=== PATIENT | male | born 1945 | race Hispanic/Latino ===

== ENCOUNTER → 2016-05-26 | Outpatient (CLI) | payer OTHER ==
[~2016-05-26] MED LIST: ALDACTONE25 MG PO; AMOX-358 PO; ASPI-875 PO; CALC-80 PO; CARV12.53 PO; CARV6.252 PO; CHOL10007 PO; CHOL200018 PO; CLON0.1T14 PO; FERR325C PO; FOLI1TAB6 PO; HYDR200T46 PO; HYDR25TA4 PO; ISOS30TA74 PO; LEVO112T55 PO; LISI20TA PO; LISI40TA PO; LVT.1T PO; MYCO500T PO; OMEG-109 PO; OMEG-82 PO; OMEP-10 PO; SIMV40TA4 PO; SPRN25T PO; TELM80TA3 PO; UBID50CA PO
[2016-05-26 11:52] LABS: BASOPHILS % (AUTO) 0 % (0-10); EOSINOPHILS % (AUTO) 0 % (0-10); LYMPHOCYTES # (AUTO) 1.6 X 10^3 (1.0-4.0); LYMPHOCYTES % (AUTO) 13 % (12-44); MEAN CORPUSCULAR HEMOGLOBIN 29 PG (25-34); MEAN CORPUSCULAR HGB CONC 33 G/DL (32-36); MEAN CORPUSCULAR VOLUME 87 FL (80-99); MONOCYTES # (AUTO) 1.8 X 10^3 (0.0-1.0); MONOCYTES % (AUTO) 14 % (0-12); NEUTROPHILS # (AUTO) 8.9 X 10^3 (1.8-7.8); NEUTROPHILS % (AUTO) 72 % (42-75); PLATELET COUNT 169 10^3/uL (130-400); RED BLOOD COUNT 4.74 10^6/uL (4.35-5.85); RED CELL DISTRIBUTION WIDTH 13.9 % (10.0-14.5); WHITE BLOOD COUNT 12.4 10^3/uL (4.3-11.0)
[2016-05-26 12:11] LABS: ERYTHROCYTE SEDIMENTATION RATE 33 MM/HR (0-30)
[2016-05-26 12:13] LABS: ALBUMIN 4.2 G/DL (3.2-4.5); BILIRUBIN,TOTAL 0.9 MG/DL (0.1-1.0); CALCIUM 9.3 MG/DL (8.5-10.1); CREATININE SERUM 1.72 MG/DL (0.60-1.30); TOTAL PROTEIN 8.4 G/DL (6.4-8.2); hs C REACTIVE PROTEIN 8.25 MG/DL (0.00-0.50)
== END ==
LOC: LAB 11:23
PROVIDERS: ATTEND Nurse Practitioner Family
DX: M79.672 Pain in left foot (principal)
CPT/HCPCS: 36415; 80053; 85025; 85652; 86141

== ENCOUNTER → 2016-11-02 | Outpatient (CLI) | payer OTHER ==
[2016-11-02 08:49] LABS: ALBUMIN 4.1 GM/DL (3.2-4.5); BILIRUBIN,TOTAL 0.4 MG/DL (0.1-1.0); CALCIUM 8.7 MG/DL (8.5-10.1); CREATININE SERUM 1.61 MG/DL (0.60-1.30); POTASSIUM 3.9 MMOL/L (3.6-5.0); TOTAL PROTEIN 8.1 GM/DL (6.4-8.2)
== END ==
LOC: LAB 08:08
PROVIDERS: ATTEND Physician Assistant
DX: I10 Essential (primary) hypertension (principal); I73.9 Peripheral vascular disease, unspecified; E78.2 Mixed hyperlipidemia
CPT/HCPCS: 36415; 80053; 80061

== ENCOUNTER → 2017-02-27 | Outpatient (CLI) | payer SELFPAY ==
[2017-02-27 14:11] LABS: BILIRUBIN,TOTAL 0.4 MG/DL (0.1-1.0); CALCIUM 8.8 MG/DL (8.5-10.1); CREATININE SERUM 1.59 MG/DL (0.60-1.30); POTASSIUM 3.5 MMOL/L (3.6-5.0); TOTAL PROTEIN 8.1 GM/DL (6.4-8.2)
== END ==
LOC: LAB 13:35
PROVIDERS: ATTEND Internal Medicine Cardiovascular Disease
DX: N28.9 Disorder of kidney and ureter, unspecified (principal); I10 Essential (primary) hypertension
CPT/HCPCS: 36415; 80053

== ENCOUNTER → 2017-03-11 | Outpatient (CLI) | payer SELFPAY | LOC: CARD 12:50 | PROVIDERS: ATTEND Internal Medicine Cardiovascular Disease | DX: I25.10 Atherosclerotic heart disease of native coronary artery without angina pectoris (principal); I10 Essential (primary) hypertension; R07.89 Other chest pain; R06.09 Other forms of dyspnea | CPT/HCPCS: 93306 ==

== ENCOUNTER → 2017-06-03 | Outpatient (CLI) | payer OTHER | LOC: LAB 15:28 | PROVIDERS: ATTEND Physician Assistant | DX: I25.10 Atherosclerotic heart disease of native coronary artery without angina pectoris (principal); R07.89 Other chest pain; R06.09 Other forms of dyspnea; I10 Essential (primary) hypertension | CPT/HCPCS: 36415; 84443 ==

== ENCOUNTER → 2017-06-03 | Outpatient (CLI) | payer OTHER ==
[2017-06-03 16:06] LABS: BASOPHILS # (AUTO) 0.1 10^3/uL (0.0-0.1); BASOPHILS % (AUTO) 2 % (0-10); EOSINOPHILS # (AUTO) 0.2 10^3/uL (0.0-0.3); EOSINOPHILS % (AUTO) 3 % (0-10); HEMATOCRIT 40 % (40-54); HEMOGLOBIN 13.4 G/DL (13.3-17.7); LYMPHOCYTES # (AUTO) 1.9 X 10^3 (1.0-4.0); LYMPHOCYTES % (AUTO) 29 % (12-44); MEAN CORPUSCULAR HEMOGLOBIN 29 PG (25-34); MEAN CORPUSCULAR HGB CONC 33 G/DL (32-36); MEAN CORPUSCULAR VOLUME 87 FL (80-99); MEAN PLATELET VOLUME 10.3 FL (7.4-10.4); MONOCYTES # (AUTO) 0.8 X 10^3 (0.0-1.0); MONOCYTES % (AUTO) 12 % (0-12); NEUTROPHILS # (AUTO) 3.6 X 10^3 (1.8-7.8); NEUTROPHILS % (AUTO) 55 % (42-75); PLATELET COUNT 196 10^3/uL (130-400); RED BLOOD COUNT 4.62 10^6/uL (4.35-5.85); RED CELL DISTRIBUTION WIDTH 14.1 % (10.0-14.5); WHITE BLOOD COUNT 6.5 10^3/uL (4.3-11.0)
[2017-06-03 16:10] LABS: BILIRUBIN,URINE NEGATIVE (NEGATIVE); CLARITY,URINE CLEAR; COLOR,URINE YELLOW; GLUCOSE, URINE (UA) NEGATIVE (NEGATIVE); KETONES,URINE NEGATIVE (NEGATIVE); LEUKOCYTE ESTERASE ,URINE NEGATIVE (NEGATIVE); NITRITE,URINE NEGATIVE (NEGATIVE); PH,URINE 6 (5-9); PROTEIN,URINE 1+ (NEGATIVE); UROBILINOGEN,URINE NORMAL (NORMAL)
[2017-06-03 16:31] LABS: BACTERIA,URINE NEGATIVE /HPF
[2017-06-03 16:34] LABS: ERYTHROCYTE SEDIMENTATION RATE 11 MM/HR (0-30)
[2017-06-03 16:41] LABS: ALBUMIN 4.3 GM/DL (3.2-4.5); CALCIUM 8.9 MG/DL (8.5-10.1); CREATININE SERUM 1.61 MG/DL (0.60-1.30); PHOSPHORUS 2.9 MG/DL (2.3-4.7); POTASSIUM 3.7 MMOL/L (3.6-5.0); URIC ACID 9.7 MG/DL (2.6-7.2)
--- NOTE | 2017-06-03 17:17 | Diagnostic Imaging Report ---
PATIENT HISTORY: LUPUS NEPHRITIS. History of cysts. TECHNIQUE: Grayscale and Doppler ultrasound was performed of the kidneys bilaterally, as well as the bladder. COMPARISON: 06/03/2013 FINDINGS: Right: The right kidney measures 9.3 cm in length. Multiple hypoechoic cysts are seen in the kidneys bilaterally. The cyst at the lateral mid kidney measures 3.6 x 3.7 x 2.2 cm, which is increased in size, previously 2.0 x 2.0 x 2.4 cm. The cyst at the medial mid kidney measures 2.0 x 2.5 x 2.4 cm, which is also larger in size, previously 1.6 x 1.8 x 2.0 cm. No significant hydronephrosis is seen. The renal cortex is mildly thin and echogenic. There is no evidence of calculi, solid focal mass or hydronephrosis. No perinephric fluid collections are identified. Left: The left kidney measures 10.0 cm in length. The renal cortex is mildly thinned and echogenic. The cysts at the lateral mid kidney measures 3.3 x 3.8 x 3.6 cm, larger since the prior study, previously 2.9 x 3.1 x 2.5 cm. The cyst at the lateral inferior left kidney measures 2.8 x 3.5 x 3.1 cm, which is larger than the previous study, previously 1 cm. There is no evidence of calculi, solid focal mass or hydronephrosis. No perinephric fluid collections are identified. There is no abdominal ascites. Views of the pelvis demonstrate a completely decompressed urinary bladder. IMPRESSION: 1. Multiple bilateral renal cysts, appear mildly larger when compared to 06/03/2013. 2. Mildly thinned echogenic renal cortices bilaterally, can be seen with medical renal disease. Dictated by: Dictated on workstation # [id number]
== END ==
LOC: RAD 15:18
PROVIDERS: ATTEND Internal Medicine Nephrology
DX: N28.1 Cyst of kidney, acquired (principal); N04.9 Nephrotic syndrome with unspecified morphologic changes
CPT/HCPCS: 36415; 76770; 80069; 81000; 82306; 82570; 82728; 83540; 83970; 84156; 84550; 85025; 85652; 86038; 86141; 86160; 86225; 86235

== ENCOUNTER → 2017-06-10 | Outpatient (CLI) | payer OTHER ==
[~2017-06-10] MED LIST changes: +CATHETER FLUSH 10 ML SYR IV PRN
[2017-06-10 09:03] VITALS: BP 147/80
--- NOTE | 2017-06-10 12:59 | STRESS TEST ---
DATE OF SERVICE: 06/10/2017 EXERCISE MYOVIEW STRESS TEST REPORT REFERRING PHYSICIAN: [facility]. Baseline heart rate is 65. Baseline blood pressure 147/80. Baseline EKG is sinus rhythm with no ischemic changes. In summary, the patient was injected with 10.47 mCi of technetium-99 Myoview and the resting images were obtained. Then, the patient started exercising with a baseline heart rate, blood pressure, EKG mentioned above. The patient was able to exercise for a total of 7 minutes 15 seconds on standard Cas protocol. With peak exercise level, EKG was showing [address] depression in II, III, aVF; upsloping ST depression in V4 and V5. Later recovery, EKG returned to baseline. Peak blood pressure was 230/75. The resting and stress images were reviewed and compared in the short axis, horizontal long axis, and vertical long axis views. Review of the images showed diaphragmatic attenuation with decreased uptake involving the inferior wall and inferolateral wall at the mid to apical segment with the stress score of 6. SDS 6, TID value 1.06. On the gated images, the left ventricle appeared to be in normal size with normal contractility, calculated ejection fraction 65%. CONCLUSION: 1. Fair exercise tolerance, a total of 7 minutes 15 seconds on standard Cas protocol, total of 8.7 METS achieving 89% of maximum expected heart rate. 2. Hypertensive response to exercise, returned to baseline during recovery. 3. Nondiagnostic EKG changes with exercise returned to baseline during recovery. 4. Diaphragmatic attenuation with mild ischemia involving the mid to apical inferior wall and inferolateral wall. 5. Normal left ventricular size with normal contractility. Calculated ejection fraction 65%. Job ID: [id number] DocumentID: [id number] Dictated Date: 06/10/2017 11:21:07 Customer Professional Date: 06/10/2017 12:58:24 Dictated By: NATALIYA KIMBALL MD
== END ==
LOC: CARD 07:33
PROVIDERS: ATTEND Physician Assistant
DX: I25.10 Atherosclerotic heart disease of native coronary artery without angina pectoris (principal); I10 Essential (primary) hypertension; R07.89 Other chest pain; R06.09 Other forms of dyspnea
CPT/HCPCS: 78452; 93017

== ENCOUNTER → 2017-08-30 | Outpatient (CLI) | payer OTHER ==
[~2017-08-30] MED LIST changes: -CATHETER FLUSH 10 ML SYR IV PRN
[2017-08-30 15:33] LABS: BASOPHILS # (AUTO) 0.1 10^3/uL (0.0-0.1); BASOPHILS % (AUTO) 1 % (0-10); EOSINOPHILS # (AUTO) 0.2 10^3/uL (0.0-0.3); EOSINOPHILS % (AUTO) 3 % (0-10); HEMATOCRIT 40 % (40-54); HEMOGLOBIN 13.2 G/DL (13.3-17.7); LYMPHOCYTES % (AUTO) 33 % (12-44); MEAN CORPUSCULAR HEMOGLOBIN 30 PG (25-34); MEAN CORPUSCULAR HGB CONC 33 G/DL (32-36); MEAN CORPUSCULAR VOLUME 90 FL (80-99); MEAN PLATELET VOLUME 9.4 FL (7.4-10.4); MONOCYTES # (AUTO) 0.6 X 10^3 (0.0-1.0); MONOCYTES % (AUTO) 11 % (0-12); NEUTROPHILS # (AUTO) 3.2 X 10^3 (1.8-7.8); NEUTROPHILS % (AUTO) 53 % (42-75); PLATELET COUNT 156 10^3/uL (130-400); RED BLOOD COUNT 4.45 10^6/uL (4.35-5.85); RED CELL DISTRIBUTION WIDTH 15.5 % (10.0-14.5)
[2017-08-30 15:36] LABS: BILIRUBIN,URINE NEGATIVE (NEGATIVE); CLARITY,URINE CLEAR; COLOR,URINE YELLOW; GLUCOSE, URINE (UA) NEGATIVE (NEGATIVE); KETONES,URINE NEGATIVE (NEGATIVE); LEUKOCYTE ESTERASE ,URINE NEGATIVE (NEGATIVE); NITRITE,URINE NEGATIVE (NEGATIVE); PH,URINE 6 (5-9); PROTEIN,URINE 1+ (NEGATIVE); UROBILINOGEN,URINE NORMAL (NORMAL)
[2017-08-30 15:42] LABS: BACTERIA,URINE NEGATIVE /HPF; SQUAMOUS EPITHELIAL CELL,UR 0-2 /HPF
[2017-08-30 15:52] LABS: ALBUMIN 4.3 GM/DL (3.2-4.5); CREATININE SERUM 1.74 MG/DL (0.60-1.30); PHOSPHORUS 2.9 MG/DL (2.3-4.7); POTASSIUM 3.5 MMOL/L (3.6-5.0); URIC ACID 8.5 MG/DL (2.6-7.2)
== END ==
LOC: LAB 15:04
PROVIDERS: ATTEND Internal Medicine Nephrology
DX: I12.9 Hypertensive chronic kidney disease with stage 1 through stage 4 chronic kidney disease, or unspecified chronic kidney disease (principal); E79.0 Hyperuricemia without signs of inflammatory arthritis and tophaceous disease; N18.3 Chronic kidney disease, stage 3 (moderate); D64.9 Anemia, unspecified; N28.1 Cyst of kidney, acquired; M32.14 Glomerular disease in systemic lupus erythematosus
CPT/HCPCS: 36415; 80069; 81000; 82306; 82570; 82728; 83540; 83970; 84156; 84550; 85025

== ENCOUNTER → 2018-01-13 | Outpatient (CLI) | payer OTHER ==
--- NOTE | 2018-01-13 14:50 | Diagnostic Imaging Report ---
PROCEDURE: US Renal Bilateral. TECHNIQUE: Multiple real-time grayscale images were obtained over the kidneys in various projections bilaterally. INDICATION: Lupus nephritis. FINDINGS: Right kidney measures 9.6 x 5.2 x 4.7 cm and the left kidney measures 10.0 x 4.3 x 4.7 cm. Numerous bilateral renal cysts are again noted. Cyst in the mid to lateral right kidney is unchanged 3.6 x 3.7 x 2.2 cm. Cyst medially located in the right mid kidney measures 2.4 x 2.3 x 2.0 cm, unchanged. On the left, mid renal cyst measures 3.3 x 3.5 x 3.1 cm, unchanged. A cyst inferiorly located is similar at 3.2 x 3.5 x 3.1 cm. No solid renal mass is seen. No calculi or hydronephrosis is seen. Urinary bladder is unremarkable. IMPRESSION: Bilateral renal cysts, similar in size when compared with examination from 06/03/2017. Dictated by: Dictated on workstation # [id number]
== END ==
LOC: RAD 13:50
PROVIDERS: ATTEND Internal Medicine Nephrology
DX: N28.1 Cyst of kidney, acquired (principal); M32.14 Glomerular disease in systemic lupus erythematosus; N18.3 Chronic kidney disease, stage 3 (moderate); E79.0 Hyperuricemia without signs of inflammatory arthritis and tophaceous disease; D64.9 Anemia, unspecified
CPT/HCPCS: 76770

== ENCOUNTER → 2018-05-12 | Outpatient (CLI) | payer OTHER ==
[2018-05-12 14:03] LABS: BASOPHILS # (AUTO) 0.1 10^3/uL (0.0-0.1); BASOPHILS % (AUTO) 1 % (0-10); EOSINOPHILS # (AUTO) 0.2 10^3/uL (0.0-0.3); EOSINOPHILS % (AUTO) 3 % (0-10); HEMATOCRIT 42 % (40-54); HEMOGLOBIN 13.8 G/DL (13.3-17.7); LYMPHOCYTES % (AUTO) 27 % (12-44); MEAN CORPUSCULAR HEMOGLOBIN 30 PG (25-34); MEAN CORPUSCULAR HGB CONC 33 G/DL (32-36); MEAN CORPUSCULAR VOLUME 92 FL (80-99); MEAN PLATELET VOLUME 9.9 FL (7.4-10.4); MONOCYTES # (AUTO) 0.8 X 10^3 (0.0-1.0); MONOCYTES % (AUTO) 11 % (0-12); NEUTROPHILS # (AUTO) 4.3 X 10^3 (1.8-7.8); NEUTROPHILS % (AUTO) 59 % (42-75); PLATELET COUNT 168 10^3/uL (130-400); RED CELL DISTRIBUTION WIDTH 13.8 % (10.0-14.5); WHITE BLOOD COUNT 7.4 10^3/uL (4.3-11.0)
[2018-05-12 14:16] LABS: BILIRUBIN,URINE NEGATIVE (NEGATIVE); CLARITY,URINE SLIGHTLY CLOUDY; COLOR,URINE YELLOW; GLUCOSE, URINE (UA) NEGATIVE (NEGATIVE); KETONES,URINE NEGATIVE (NEGATIVE); LEUKOCYTE ESTERASE ,URINE NEGATIVE (NEGATIVE); NITRITE,URINE NEGATIVE (NEGATIVE); PH,URINE 7 (5-9); PROTEIN,URINE 1+ (NEGATIVE); UROBILINOGEN,URINE NORMAL (NORMAL)
[2018-05-12 14:24] LABS: BACTERIA,URINE NEGATIVE /HPF; SQUAMOUS EPITHELIAL CELL,UR RARE /HPF
[2018-05-12 14:29] LABS: CALCIUM 8.8 MG/DL (8.5-10.1); CREATININE SERUM 1.7 MG/DL (0.60-1.30); PHOSPHORUS 2.7 MG/DL (2.3-4.7); POTASSIUM 3.8 MMOL/L (3.6-5.0); URIC ACID 7.1 MG/DL (2.6-7.2)
== END ==
LOC: LAB 13:36
PROVIDERS: ATTEND Internal Medicine Nephrology
DX: M32.14 Glomerular disease in systemic lupus erythematosus (principal); I12.9 Hypertensive chronic kidney disease with stage 1 through stage 4 chronic kidney disease, or unspecified chronic kidney disease; N18.3 Chronic kidney disease, stage 3 (moderate); E79.0 Hyperuricemia without signs of inflammatory arthritis and tophaceous disease; N28.1 Cyst of kidney, acquired
CPT/HCPCS: 36415; 80069; 81000; 82570; 84156; 84550; 85025

== ENCOUNTER 2018-11-04 08:38 | Outpatient (RCR) | payer MEDICARE ==
[2018-11-04 09:27] LABS: BILIRUBIN,URINE NEGATIVE (NEGATIVE); CLARITY,URINE CLEAR; COLOR,URINE YELLOW; GLUCOSE, URINE (UA) NEGATIVE (NEGATIVE); KETONES,URINE NEGATIVE (NEGATIVE); LEUKOCYTE ESTERASE ,URINE NEGATIVE (NEGATIVE); NITRITE,URINE NEGATIVE (NEGATIVE); PH,URINE 6 (5-9); PROTEIN,URINE 2+ (NEGATIVE)
[2018-11-04 09:34] LABS: BASOPHILS # (AUTO) 0.1 10^3/uL (0.0-0.1); BASOPHILS % (AUTO) 1 % (0-10); EOSINOPHILS # (AUTO) 0.2 10^3/uL (0.0-0.3); EOSINOPHILS % (AUTO) 4 % (0-10); HEMATOCRIT 41 % (40-54); HEMOGLOBIN 13.8 G/DL (13.3-17.7); LYMPHOCYTES # (AUTO) 1.6 X 10^3 (1.0-4.0); LYMPHOCYTES % (AUTO) 29 % (12-44); MEAN CORPUSCULAR HEMOGLOBIN 31 PG (25-34); MEAN CORPUSCULAR HGB CONC 34 G/DL (32-36); MEAN CORPUSCULAR VOLUME 92 FL (80-99); MONOCYTES # (AUTO) 0.5 X 10^3 (0.0-1.0); MONOCYTES % (AUTO) 10 % (0-12); NEUTROPHILS % (AUTO) 57 % (42-75); PLATELET COUNT 163 10^3/uL (130-400); WHITE BLOOD COUNT 5.4 10^3/uL (4.3-11.0)
[2018-11-04 09:39] LABS: RBC,URINE 0-2 /HPF
[2018-11-04 09:40] LABS: BACTERIA,URINE TRACE /HPF; WBC,URINE 0-2 /HPF
[2018-11-04 09:54] LABS: ALBUMIN 4.3 GM/DL (3.2-4.5); CALCIUM 9.2 MG/DL (8.5-10.1); CREATININE SERUM 1.42 MG/DL (0.60-1.30); PHOSPHORUS 3.3 MG/DL (2.3-4.7); POTASSIUM 3.9 MMOL/L (3.6-5.0); URIC ACID 7.9 MG/DL (2.6-7.2)
== END 2019-02-02 | disposition home or self-care (01) ==
LOC: LAB 08:38
PROVIDERS: ATTEND Internal Medicine Nephrology
DX: M32.14 Glomerular disease in systemic lupus erythematosus (principal); I12.9 Hypertensive chronic kidney disease with stage 1 through stage 4 chronic kidney disease, or unspecified chronic kidney disease; N18.3 Chronic kidney disease, stage 3 (moderate); N28.1 Cyst of kidney, acquired
CPT/HCPCS: 36415; 80069; 81000; 82306; 82570; 83970; 84156; 84550; 85025

== ENCOUNTER 2019-04-08 08:05 | Day surgery (SDC) | payer MEDICARE ==
[~2019-04-08] VITALS: Ht 170 cm; Wt 88.0 kg
[2019-04-08] VITALS (11 sets, daily range): BP systolic 130–153; BP diastolic 64–76
[~2019-04-08 08:05] MED LIST changes: +HEParin (CATH LAB) 2,000 ML IV ONE; +LIDOCAINE 1% INJ 20 ML 20 ML VIAL ONE; +NS IV 1000 ML 1,000 ML ONE
[2019-04-08] MEDS ORDERED: NS IV 1000 ML 1,000 ML IV SCH ×2 (08:15→10:41)
[2019-04-08 08:39] LABS: HEMOGLOBIN 14.6 G/DL (13.3-17.7); MEAN PLATELET VOLUME 10.2 FL (7.4-10.4); RED CELL DISTRIBUTION WIDTH 13.6 % (10.0-14.5)
[2019-04-08] MEDS ORDERED: SIMV40TA25 PO (08:41)
[2019-04-08] MEDS ORDERED: CHOL200012 PO (08:49)
[2019-04-08] MEDS ORDERED: OMEP-280 PO (08:49)
[2019-04-08] MEDS ORDERED: MULT-1061 PO (08:49)
[2019-04-08] MEDS ORDERED: HYDR200T46 PO (08:49)
[2019-04-08] MEDS ORDERED: LEVO137T2 PO (08:49)
[2019-04-08] MEDS ORDERED: HYDR25TA4 PO (08:49)
[2019-04-08 08:50] LABS: INR 0.9 (0.8-1.4); PROTHROMBIN TIME PATIENT 12.6 SEC (12.2-14.7)
[2019-04-08] MEDS ORDERED: VITA1CAP19 PO (08:52)
[2019-04-08] MEDS ORDERED: ASPI-983 PO (08:52)
[2019-04-08] MEDS ORDERED: ISOS30TA3 PO (08:52)
[2019-04-08] MEDS ORDERED: ALLO100T PO (08:52)
[2019-04-08] MEDS ORDERED: FERR-84 PO (08:52)
[2019-04-08 08:55] LABS: ALBUMIN 4.3 GM/DL (3.2-4.5); BILIRUBIN,TOTAL 0.4 MG/DL (0.1-1.0); CALCIUM 9.2 MG/DL (8.5-10.1); CREATININE SERUM 1.52 MG/DL (0.60-1.30); POTASSIUM 3.6 MMOL/L (3.6-5.0)
--- NOTE | 2019-04-08 09:03 | Diagnostic Imaging Report ---
Clinical Indication: Pre-heart catheter with coronary angiography with left ventriculography with possible angioplasty/stent. No chest complaints today. Exam: Portable chest x-ray upright view. Comparisons: Chest x-ray dated 11/16/2015. Findings: Lungs/pleura: Lungs are clear. There is no pneumothorax. There is no pleural effusion. Mediastinum: Unremarkable. Pulmonary vasculature: Unremarkable. Heart: Heart size within normal limits. There are stable postoperative changes with sternotomy wires and mediastinal clips noted. Bones/extrathoracic soft tissue: There are degenerative spurs involving the thoracic spine. Impression: There is no radiographic evidence of acute cardiopulmonary process. Dictated by: Dictated on workstation # [id number]
--- NOTE | 2019-04-08 09:37 | NUR ---
SPOKE WITH THE PT (HIS DAUGHTER WAS THERE TO INTERRUPT AND HE HAD HIS BOTTLES WITH HIM) TO COMPLETE THE MED REC. PT WAS ABLE TO TELL ME (THRU HIS DAUGHTER) HOW/WHEN HE TAKES EACH MEDICATION. THE FOLLOWING ARE FILL DATES FROM [facility] (MOST MEDS ARE FROM THE REPOSITORY): 02-03-2019 HYDROXYCHLOROQUINE 200MG #90/90DS 01-12-2019 ALLOPURINOL 100MG #90/90DS (THIS WAS PICKED UP AT [facility]) 02-03-2019 SIMVASTATIN 40MG #90/90DS 02-03-2019 OMEPRAZOLE 20MG #90/45DS 02-03-2019 LEVOTHYROXINE 137MG #90/90DS 02-03-2019 LISINOPRIL 20MG #90/90DS 02-03-2019 HCTZ 25MG #90/90DS 02-03-2019 ISOSORBIDE ER 3MG #90/90DS OTC MEDS: ASPIRIN VIT D IRON FISH OIL MTV SUPER B COMPLEX
[2019-04-08] MEDS ORDERED: fentaNYL INJECTION 100 MCG/2 ML AMP ONE (09:43)
[2019-04-08] MEDS ORDERED: MIDAZOLAM 5 MG/5 ML (VERSED) VIAL ONE (09:43)
[2019-04-08 10:07] LABS: BILIRUBIN,URINE NEGATIVE (NEGATIVE); CLARITY,URINE CLEAR; COLOR,URINE YELLOW; GLUCOSE, URINE (UA) NEGATIVE (NEGATIVE); KETONES,URINE NEGATIVE (NEGATIVE); LEUKOCYTE ESTERASE ,URINE NEGATIVE (NEGATIVE); NITRITE,URINE NEGATIVE (NEGATIVE); PH,URINE 6.5 (5-9); PROTEIN,URINE NEGATIVE (NEGATIVE)
[2019-04-08 10:19] LABS: BACTERIA,URINE NEGATIVE /HPF; RBC,URINE RARE /HPF; SQUAMOUS EPITHELIAL CELL,UR 0-2 /HPF; WBC,URINE RARE /HPF
--- NOTE | 2019-04-08 10:41 | Cardiac Procedure Note-CS/ASA ---
Pre-Procedure Note Pre-Op Procedure Note H&P Reviewed The H&P was reviewed, patient examined and no changes noted. Date H&P Reviewed: Apr 08, 2019 Time H&P Reviewed: 10:00 Conscious Sedation Pre-Proced Time 10:00 ASA Score 3 For ASA 3 and 4: Consider anesthesia and medical clearance. Also, for patients with a history of failed moderate sedation consider anesthesia. Airway Lungs Heart ASA score ASA 1: a normal healthy patient ASA 2: a patient with a mild systemic disease (mid diabetes, controlled hypertension, obesity x ASA 3: a patient with a severe systemic disease that limits activity (angina, COPD, prior Myocardial infarction) ASA 4: a patient with an incapacitating disease that is a constant threat to life (CHF, renal failure) ASA 5: a moribund patient not expected to survive 24 hrs. (ruptured aneurysm) ASA 6: a declared brain- patient whose organs are being harvested. For emergent operations, add the letter E after the classification Mallampati Classification Grade 3 Sedation Plan Analgesia, Amnesia, Plan communicated to team members, Discussed options with patient/fam, Discussed risks with patient/fam The patient is an appropriate candidate to undergo the planned procedure, sedation, and anesthesia. The patient immediately re-assessed prior to indication. NATALIYA KIMBALL MD Apr 08, 2019 10:41
--- NOTE | 2019-04-08 10:43 | Discharge Inst-Post CATH ---
Discharge Inst-CATH/EP Problems Reviewed?: Yes Post Cardiac Cath/EP D/C Inst Follow Up/Plan Appointment with Dr. Barlow's office in 2- 4 weeks <b>CARDIAC CATH/EP PROCEDURE DISCHARGE INSTRUCTIONS</b> ACTIVITY * Go Home directly and rest. * Limit activity of the leg (or wrist if it was used) for 7 days including aerob ics, swimming, jogging, bicycling, etc. * Restrict stair-climbing for 7 days if possible, if not, climb up with your non-cath leg, then bring together on the same step. * Avoid lifting, pushing, pulling or excessive movement of the affected extremity for 7 days. * Customary sexual activity may be resumed after 2 days-use caution not to use a position that strains or causes pain to the affected extremity. * No driving for 24 hours. * NO SMOKING. * Avoid straining for bowel movements for 7 days. * Gentle walking on level ground is allowed. * Returning to work will depend on the type of procedure and the results. Your doctor will discuss this with you. CALL YOUR DOCTOR FOR ANY OF THE FOLLOWING: *If bleeding from the puncture site occurs- Apply gentle pressure to site with clean cloth and call your doctor or EMS. * If a knot or lump forms under the skin, increases in size, or causes pain. * If bruising appears to be worsening or moving further down your leg instead of disappearing. * Temperature above 101 F. CARE OF YOUR GROIN INCISION; * Bruising or purple discoloration of the skin near the puncture site is common. * You may shower only, no bathtub bathing for 5 days. Be careful to avoid slipping as your leg may feel stiff. * If a closure device was used on your femoral artery, please see the attached guide regarding care of the device and your leg. * Leave dressing on FOR 24 hours. CARE OF YOUR WRIST INCISION; * Bruising or purple discoloration of the skin near the puncture site is common. * You may shower. * DO NOT submerge wrist. * Leave dressing on FOR 24 hours. NATALIYA BARLOW MD Apr 08, 2019 10:43
[2019-04-08] MEDS ORDERED: PATIENT MAY USE OWN MEDS, ALL PO SCH (10:45)
--- NOTE | 2019-04-08 10:49 | Cardiac Cath Report ---
Cardiac Cath Report Physician (s)/Respiratory Therapy Director (s) Physician NATALIYA KIMBALL MD Pre-Procedure Diagnosis Pre-Procedure Diagnosis: CAD Post-Procedure Note Procedure Start Date: Apr 08, 2019 Name of Procedure: LHC, VG, RILEY angiogram Findings/Procedure Note PROCEDURE NOTE: After explaining the procedure to the patient, all pros and cons were explained, all questions were answered. The patient signed the consent and then he was placed on the cardiac catheterization laboratory. Groin was prepped SL fashion local anesthesia was used. Sheath placed in the rt femoral artery. Shae r ight and left catheter were used to access the coronary system.Vein Graft evaluated. RILEY evaluated. Pigtail was used to access the left ventricular cavity. Left ventriculogram was not done Aortic arch angiogram At the end of the procedure the sheath was removed. Closure device was used FINDINGS: Hemodynamics LV 123/17 Aorta 128/56/84 ANATOMY: Left Main has mild disease Left Anterior Descending is occluded proximally, RILEY to LAD is patent, severe stenosis beyond the anastomosis point Left Circumflex is occluded, vein graft to OM1 is patent Right Coronory Artery is dominant artery, severe stenosis at the right PDA, very small artery RILEY to LAD is patent, severe stenosis beyond the anastomosis, small artery not amendable to interventio Vein Graft jump graft to ramus and obtuse marginal is patent with good flow LV Gram was not done, pressure measured CONCLUSION: 1. Patent RILEY to LAD with severe disease beyond the anastomosis point, very small artery, not amendable to intervention 2. Patent vein graft jump graft to ramus intermedius and OM1 with good flow distally 3. Dominant right coronary artery with severe stenosis at the right PDA, very small artery, not amendable to intervention 4. Normal left ventricular end-diastolic pressure DISCUSSION AND RECOMMENDATION: medical therapy, no intervention is needed Anesthesia Type: Conscious Sedation Bad tableContrast Amount: 25 ml Total Radiation Dose: 489 mGy Post-Procedure Diagnosis Post-operative diagnosis: Chest pain Coronary artery disease Hypertension Hyperlipidemia NATALIYA KIMBALL MD Apr 08, 2019 10:49
== END 2019-04-08 16:02 | disposition home or self-care (01) ==
LOC: CATH 08:05 → ICU 11:39 → CATH 16:02
PROVIDERS: ATTEND Internal Medicine Cardiovascular Disease
DX: I25.10 Atherosclerotic heart disease of native coronary artery without angina pectoris (principal); I65.23 Occlusion and stenosis of bilateral carotid arteries; I10 Essential (primary) hypertension; E78.5 Hyperlipidemia, unspecified; N28.9 Disorder of kidney and ureter, unspecified; Z95.1 Presence of aortocoronary bypass graft
CPT/HCPCS: 36415; 71045; 80053; 80061; 81000; 85027; 85610; 85730; 87081; 93459

== ENCOUNTER → 2019-08-31 | Outpatient (CLI) | payer MEDICARE ==
[~2019-08-31] MED LIST changes: +ALLO100T PO; +ASPI-983 PO; +CHOL200012 PO; +FERR-84 PO; -HEParin (CATH LAB) 2,000 ML IV ONE; +ISOS30TA3 PO; +LEVO137T2 PO; -LIDOCAINE 1% INJ 20 ML 20 ML VIAL ONE; +MULT-1061 PO; -NS IV 1000 ML 1,000 ML ONE; +OMEP20CA18 PO; +SIMV40TA25 PO; +VITA1CAP19 PO
[2019-08-31 10:17] LABS: BASOPHILS # (AUTO) 0.1 10^3/uL (0.0-0.1); BASOPHILS % (AUTO) 1 % (0-10); EOSINOPHILS # (AUTO) 0.3 10^3/uL (0.0-0.3); EOSINOPHILS % (AUTO) 4 % (0-10); HEMATOCRIT 41 % (40-54); HEMOGLOBIN 13.6 G/DL (13.3-17.7); LYMPHOCYTES # (AUTO) 1.6 X 10^3 (1.0-4.0); LYMPHOCYTES % (AUTO) 26 % (12-44); MEAN CORPUSCULAR HEMOGLOBIN 31 PG (25-34); MEAN CORPUSCULAR HGB CONC 33 G/DL (32-36); MEAN CORPUSCULAR VOLUME 92 FL (80-99); MEAN PLATELET VOLUME 10.1 FL (7.4-10.4); MONOCYTES # (AUTO) 0.7 X 10^3 (0.0-1.0); MONOCYTES % (AUTO) 11 % (0-12); NEUTROPHILS # (AUTO) 3.6 X 10^3 (1.8-7.8); NEUTROPHILS % (AUTO) 58 % (42-75); PLATELET COUNT 153 10^3/uL (130-400); RED CELL DISTRIBUTION WIDTH 13.7 % (10.0-14.5); WHITE BLOOD COUNT 6.2 10^3/uL (4.3-11.0)
[2019-08-31 10:22] LABS: BILIRUBIN,URINE NEGATIVE (NEGATIVE); CLARITY,URINE CLEAR; COLOR,URINE YELLOW; GLUCOSE, URINE (UA) NEGATIVE (NEGATIVE); KETONES,URINE NEGATIVE (NEGATIVE); LEUKOCYTE ESTERASE ,URINE NEGATIVE (NEGATIVE); NITRITE,URINE NEGATIVE (NEGATIVE); PROTEIN,URINE NEGATIVE (NEGATIVE)
[2019-08-31 10:31] LABS: BACTERIA,URINE NEGATIVE /HPF; SQUAMOUS EPITHELIAL CELL,UR 0-2 /HPF
[2019-08-31 10:42] LABS: CREATININE SERUM 1.51 MG/DL (0.60-1.30)
== END ==
LOC: LAB 09:44
PROVIDERS: ATTEND Internal Medicine Rheumatology
DX: M32.9 Systemic lupus erythematosus, unspecified (principal)
CPT/HCPCS: 81000; 82565; 84450; 86141; 86225

== ENCOUNTER → 2019-08-31 | Outpatient (CLI) | payer MEDICARE ==
[2019-08-31 10:22] LABS: BASOPHILS # (AUTO) 0.1 10^3/uL (0.0-0.1); BASOPHILS % (AUTO) 1 % (0-10); EOSINOPHILS # (AUTO) 0.3 10^3/uL (0.0-0.3); EOSINOPHILS % (AUTO) 4 % (0-10); HEMATOCRIT 41 % (40-54); HEMOGLOBIN 13.6 G/DL (13.3-17.7); LYMPHOCYTES # (AUTO) 1.6 X 10^3 (1.0-4.0); LYMPHOCYTES % (AUTO) 26 % (12-44); MEAN CORPUSCULAR HEMOGLOBIN 31 PG (25-34); MEAN CORPUSCULAR HGB CONC 33 G/DL (32-36); MEAN CORPUSCULAR VOLUME 92 FL (80-99); MEAN PLATELET VOLUME 10.1 FL (7.4-10.4); MONOCYTES # (AUTO) 0.7 X 10^3 (0.0-1.0); MONOCYTES % (AUTO) 11 % (0-12); NEUTROPHILS # (AUTO) 3.6 X 10^3 (1.8-7.8); NEUTROPHILS % (AUTO) 58 % (42-75); PLATELET COUNT 153 10^3/uL (130-400); RED CELL DISTRIBUTION WIDTH 13.7 % (10.0-14.5); WHITE BLOOD COUNT 6.2 10^3/uL (4.3-11.0)
[2019-08-31 10:32] LABS: BACTERIA,URINE NEGATIVE /HPF; BILIRUBIN,URINE NEGATIVE (NEGATIVE); CLARITY,URINE CLEAR; COLOR,URINE YELLOW; GLUCOSE, URINE (UA) NEGATIVE (NEGATIVE); KETONES,URINE NEGATIVE (NEGATIVE); LEUKOCYTE ESTERASE ,URINE NEGATIVE (NEGATIVE); NITRITE,URINE NEGATIVE (NEGATIVE); PROTEIN,URINE NEGATIVE (NEGATIVE); SQUAMOUS EPITHELIAL CELL,UR 0-2 /HPF
[2019-08-31 10:44] LABS: ALBUMIN 4.2 GM/DL (3.2-4.5); CALCIUM 8.8 MG/DL (8.5-10.1); CREATININE SERUM 1.52 MG/DL (0.60-1.30); PHOSPHORUS 3.3 MG/DL (2.3-4.7); POTASSIUM 3.7 MMOL/L (3.6-5.0); URIC ACID 8.6 MG/DL (2.6-7.2)
== END ==
LOC: LAB 09:41
PROVIDERS: ATTEND Internal Medicine Nephrology
DX: I12.9 Hypertensive chronic kidney disease with stage 1 through stage 4 chronic kidney disease, or unspecified chronic kidney disease (principal); N18.3 Chronic kidney disease, stage 3 (moderate); M32.14 Glomerular disease in systemic lupus erythematosus; E79.0 Hyperuricemia without signs of inflammatory arthritis and tophaceous disease
CPT/HCPCS: 36415; 80069; 81000; 82306; 82570; 83970; 84156; 84550; 85025

== ENCOUNTER 2019-10-05 15:11 | Emergency (ER) | payer MEDICARE ==
[~2019-10-05] VITALS: Ht 172.7 cm; Wt 88.5 kg
[2019-10-05] MEDS ORDERED: ACETAMINOPHEN 500 MG TAB (TYLENOL) PO STA (15:20)
[2019-10-05] MEDS ORDERED: ORPHENADRINE 60 MG/2 ML (NORFLEX) AMP (ED ONLY) IM STA (15:20)
--- NOTE | 2019-10-05 15:20 | ED Headache ---
General Stated Complaint: STROKE LIKE SYMPTOMS Source: patient, family Exam Limitations: language barrier History of Present Illness Date Seen by Provider: Oct 05, 2019 Time Seen by Provider: 15:20 Initial Comments 74-year-old male presents with a headache has been going on for about a week. Patient reports the headaches in the back of his head and neck. He has some occasional vision changes but none at this time. He does not have any slurred speech, focal weakness. He has some mild nausea occasionally. No vomiting. Does not have any chest pain. He does have some occasional shortness of breath with exertion but not at this time. Allergies and Home Medications Allergies Coded Allergies: No Known Drug Allergies (Unverified , 10/13/12) Home Medications Allopurinol 100 Mg Tablet, 100 MG PO 1200, (Reported) Aspirin 81 Mg Tablet.dr, 81 MG PO 1200, (Reported) Ferrous Sulfate 325 Mg Tablet, 325 MG PO 1200, (Reported) Hydrochlorothiazide 25 Mg Tablet, 25 MG PO BID, (Reported) Hydroxychloroquine Sulfate 200 Mg Tablet, 200 MG PO 1200, (Reported) Isosorbide Mononitrate 30 Mg Tab.er.24h, 30 MG PO DAILY, (Reported) Levothyroxine Sodium 137 Mcg Tablet, 137 MCG PO DAILY, (Reported) Lisinopril 20 Mg Tablet, 20 MG PO DAILY, (Reported) Multivit-Min/FA/Lycopen/Lutein 1 Each Tablet, 1 EACH PO DAILY, (Reported) [place]-3 Fatty Acids/Fish Oil 1 Each Capsule, 1,200 MG PO DAILY, (Reported) Omeprazole 20 Mg Capsule.dr, 20 MG PO BID, (Reported) Simvastatin 40 Mg Tablet, 40 MG PO 1800, (Reported) Vitamin B Complex 1 Each Capsule, 1 EACH PO 1200, (Reported) Patient Home Medication List Home Medication List Reviewed: Yes Review of Systems Review of Systems Constitutional: No chills, No fever, No weakness Eyes: See HPI Ears, Nose, Mouth, Throat: no symptoms reported Respiratory: No cough, No short of breath Cardiovascular: No chest pain, No edema; Hx of Intervention; No palpitations Gastrointestinal: No abdominal pain, No constipation; nausea; No vomiting Genitourinary: No decreased output, No dysuria Musculoskeletal: see HPI Skin: no symptoms reported Psychiatric/Neurological: No Symptoms Reported Past Qkuanci-Vpboob-Qqnmrt Hx Past Med/Social Hx: Reviewed Nursing Past Med/Soc Hx Patient Social History Type Used: Cigars Former Smoker, Quit: Nov 15, 1997 Recent Foreign Travel: No Contact w/Someone Who Travel: No Immunizations Up To Date Tetanus Booster (TDap): Unknown Date of Pneumonia Vaccine: Aug 21, 2013 Date of Influenza Vaccine: Dec 17, 2018 Past Medical History CABG Respiratory: No Cardiac: Yes Coronary Artery Disease Neurological: No Genitourinary: No Gastrointestinal: No Cancer: No Physical Exam Vital Signs Vital Signs - First Documented 10/05/19 15:11 Temp 36.7 Pulse 68 Resp 21 B/P (MAP) 149/80 (103) Pulse Ox 100 O2 Delivery Room Air Capillary Refill : Height, Weight, BMI Height: 5'7.00" Weight: 202lbs. 0.0oz. 91.771355ki; 30.44 BMI Method:Stated General Appearance: WD/WN, no apparent distress HEENT: PERRL/EOMI, normal ENT inspection Neck: full range of motion, supple, tender lateral (mild diffuse posterior) Cardiovascular: normal peripheral pulses, regular rate, rhythm Respiratory: lungs clear, normal breath sounds, no respiratory distress Gastrointestinal: non tender, soft Extremities: normal range of motion, non-tender, normal inspection Psychiatric: alert, oriented x 3 [place] Nerves: normal hearing, normal speech, PERRL Coordination/Gait: normal gait Motor/Sensory: no motor deficit, no sensory deficit; No weak motor strength RUE, No weak motor strength LUE, No weak motor strength RLE, No weak motor strength LLE Skin: normal color, warm/dry Progress/Results/Core Measures Results/Orders Lab Results Laboratory Tests Test 10/05/19 15:15 10/05/19 15:18 Range/Units White Blood Count 7.8 4.3-11.0 10^3/uL Red Blood Count 4.15 L 4.35-5.85 10^6/uL Hemoglobin 12.7 L 13.3-17.7 G/DL Hematocrit 38 L 40-54 % Mean Corpuscular Volume 92 80-99 FL Mean Corpuscular Hemoglobin 31 25-34 PG Mean Corpuscular Hemoglobin Concent 33 32-36 G/DL Red Cell Distribution Width 13.8 10.0-14.5 % Platelet Count 186 130-400 10^3/uL Mean Platelet Volume 10.0 7.4-10.4 FL Neutrophils (%) (Auto) 56 42-75 % Lymphocytes (%) (Auto) 26 12-44 % Monocytes (%) (Auto) 10 0-12 % Eosinophils (%) (Auto) 7 0-10 % Basophils (%) (Auto) 1 0-10 % Neutrophils # (Auto) 4.4 1.8-7.8 X 10^3 Lymphocytes # (Auto) 2.0 1.0-4.0 X 10^3 Monocytes # (Auto) 0.8 0.0-1.0 X 10^3 Eosinophils # (Auto) 0.5 H 0.0-0.3 10^3/uL Basophils # (Auto) 0.0 0.0-0.1 10^3/uL Prothrombin Time 13.7 12.2-14.7 SEC INR Comment 1.0 0.8-1.4 Activated Partial Thromboplast Time 27 24-35 SEC D-Dimer 0.48 0.00-0.49 UG/ML Sodium Level 142 135-145 MMOL/L Potassium Level 4.3 3.6-5.0 MMOL/L Chloride Level 108 H 98-107 MMOL/L Carbon Dioxide Level 25 21-32 MMOL/L Anion Gap 9 5-14 MMOL/L Blood Urea Nitrogen 26 H 7-18 MG/DL Creatinine 1.60 H 0.60-1.30 MG/DL Estimat Glomerular Filtration Rate 43 BUN/Creatinine Ratio 16 Glucose Level 110 H 70-105 MG/DL Calcium Level 8.4 L 8.5-10.1 MG/DL Corrected Calcium 8.5 8.5-10.1 MG/DL Total Bilirubin 0.3 0.1-1.0 MG/DL Aspartate Amino Transf (AST/SGOT) 32 5-34 U/L Alanine Aminotransferase (ALT/SGPT) 37 0-55 U/L Alkaline Phosphatase 77 40-136 U/L Troponin I < 0.028 <0.028 NG/ML Total Protein 7.3 6.4-8.2 GM/DL Albumin 3.9 3.2-4.5 GM/DL Glucometer 94 70-110 MG/DL My Orders Orders - RANDLE,JEFFREY L DO Cbc With Automated Diff (10/05/19 15:20) Protime With Inr (10/05/19 15:20) Partial Thromboplastin Time (8/3/20 15:20) Comprehensive Metabolic Panel (10/05/19 15:20) Fibrin Degradation Products (10/05/19 15:20) Troponin I (10/05/19 15:20) Ua Culture If Indicated (10/05/19 15:20) Chest 1 View, Ap/Pa Only (10/05/19 15:20) Ekg Tracing (10/05/19 15:20) Accucheck Stat ONCE (10/05/19 15:20) Ed Iv/Invasive Line Start (10/05/19 15:20) Vital Signs Stroke Patient Q15M (10/05/19 15:20) Ct Head Wo-R/O Stroke (10/05/19 15:20) Monitor-Rhythm Ecg Trace Only (10/05/19 15:20) Dysphagia Screening Tool (10/05/19 15:20) Lipid Panel (10/06/19 06:00) Acetaminophen Tablet (Tylenol Tablet) (10/05/19 15:20) Orphenadrine Inj (Ed Only) (Norflex Inje (10/05/19 15:43) Vital Signs/I&O 10/05/19 15:11 Temp 36.7 Pulse 68 Resp 21 B/P (MAP) 149/80 (103) Pulse Ox 100 O2 Delivery Room Air Progress Progress Note : Time: 16:27 Progress Note Patient's symptoms resolved with this Flexeril and Tylenol. Patient with no acute findings on exam for a stroke or on CT. Patient no acute findings on labs. Patient stable. I recommended topical lidocaine and Voltaren cream. Patient is discharged home in stable condition Initial ECG Impression Date: Oct 05, 2019 Initial ECG Impression Time: 15:17 Initial ECG Rate: 60 Initial ECG Rhythm: Normal Sinus Initial ECG Intervals: Normal Initial ECG Impression: Normal Diagnostic Imaging Diagonstic Imaging: Xray, CT Comments [facility], [place] NAME: [facility]O [facility] REC#: [id number] PT STATUS: REG ER : 1945 PHYSICIAN: JEFFREY RANDLE DO ADMIT DATE: 10/05/19/ER Signed Date of Exam:10/05/19 CT HEAD WO-R/O STROKE PROCEDURE: CT head wo r/o stroke. TECHNIQUE: Multiple contiguous axial images were obtained through the brain without the use of intravenous contrast. Auto Exposure Controls were utilized during the CT exam to meet ALARA standards for radiation dose reduction. INDICATION: Headache and dizziness. COMPARISON: No prior studies are available for comparison. FINDINGS: Ventricles and sulci are within normal limits. No sulcal effacement or midline shift is identified. No acute intra-axial or extra-axial hemorrhage is detected. Cisterns are patent. Visualized paranasal sinuses are clear. IMPRESSION: No acute intracranial process is detected. [facility] [place] NAME: OR[place]O CASTRO [facility] REC#: [id number] PT STATUS: REG ER : 1945 PHYSICIAN: JEFFREY RANDLE DO ADMIT DATE: 10/05/19/ER Signed Date of Exam:10/05/19 CHEST 1 VIEW, AP/PA ONLY INDICATION: Headache. TIME OF EXAM: 03:47 p.m. Correlation is made with prior chest from 04/08/2019. FINDINGS: Changes of median sternotomy are noted. The heart size is normal. The lungs are clear. No infiltrates are seen. There is no effusion or pneumothorax. IMPRESSION: No acute cardiopulmonary process is detected. Departure Impression Primary Impression: Acute cervical myofascial strain Qualified Codes: S16.1XXA - Strain of muscle, fascia and tendon at neck level, initial encounter Disposition: HOME, SELF-CARE Condition: Stable Departure-Patient Inst. Referrals: MARYANN GAY MD (PCP/Family) Primary Care Physician Patient Instructions: Tension Headache (DC), Cervical Muscle Strain (DC) Add. Discharge Instructions: 4% topical lidocaine with menthol to affected area as directed on package Voltaran cream to affected area as directed on package Up with your primary care provider in 3-4 days for continuation of care and recheck in today symptoms JEFFREY RANDLE DO Oct 05, 2019 15:20
[2019-10-05 15:33] LABS: BASOPHILS % (AUTO) 1 % (0-10); EOSINOPHILS # (AUTO) 0.5 10^3/uL (0.0-0.3); EOSINOPHILS % (AUTO) 7 % (0-10); HEMATOCRIT 38 % (40-54); HEMOGLOBIN 12.7 G/DL (13.3-17.7); LYMPHOCYTES % (AUTO) 26 % (12-44); MEAN CORPUSCULAR HEMOGLOBIN 31 PG (25-34); MEAN CORPUSCULAR HGB CONC 33 G/DL (32-36); MEAN CORPUSCULAR VOLUME 92 FL (80-99); MONOCYTES # (AUTO) 0.8 X 10^3 (0.0-1.0); MONOCYTES % (AUTO) 10 % (0-12); NEUTROPHILS # (AUTO) 4.4 X 10^3 (1.8-7.8); NEUTROPHILS % (AUTO) 56 % (42-75); PLATELET COUNT 186 10^3/uL (130-400); RED CELL DISTRIBUTION WIDTH 13.8 % (10.0-14.5); WHITE BLOOD COUNT 7.8 10^3/uL (4.3-11.0)
[2019-10-05 15:43] LABS: FIBRIN DEGRADATION PRODUCTS 0.48 UG/ML (0.00-0.49); PROTHROMBIN TIME PATIENT 13.7 SEC (12.2-14.7)
[2019-10-05] MEDS ORDERED: ORPHENADRINE 60 MG/2 ML (NORFLEX) AMP (ED ONLY) IV STA (15:43)
[2019-10-05 15:48] LABS: ALANINE AMINOTRANSFERASE 37 U/L (0-55); ALBUMIN 3.9 GM/DL (3.2-4.5); ALKALINE PHOSPHATASE 77 U/L (40-136); BILIRUBIN,TOTAL 0.3 MG/DL (0.1-1.0); BUN/CREATININE RATIO 16; CALCIUM 8.4 MG/DL (8.5-10.1); CARBON DIOXIDE 25 MMOL/L (21-32); CHLORIDE 108 MMOL/L (98-107); GFR ESTIMATED 43; GLUCOSE 110 MG/DL (70-105); POTASSIUM 4.3 MMOL/L (3.6-5.0); SODIUM 142 MMOL/L (135-145); TOTAL PROTEIN 7.3 GM/DL (6.4-8.2)
--- NOTE | 2019-10-05 15:57 | Diagnostic Imaging Report ---
PROCEDURE: CT head wo r/o stroke. TECHNIQUE: Multiple contiguous axial images were obtained through the brain without the use of intravenous contrast. Auto Exposure Controls were utilized during the CT exam to meet ALARA standards for radiation dose reduction. INDICATION: Headache and dizziness. COMPARISON: No prior studies are available for comparison. FINDINGS: Ventricles and sulci are within normal limits. No sulcal effacement or midline shift is identified. No acute intra-axial or extra-axial hemorrhage is detected. Cisterns are patent. Visualized paranasal sinuses are clear. IMPRESSION: No acute intracranial process is detected. Dictated by: Dictated on workstation # [id number]
--- NOTE | 2019-10-05 16:03 | Diagnostic Imaging Report ---
INDICATION: Headache. TIME OF EXAM: 03:47 p.m. Correlation is made with prior chest from 04/08/2019. FINDINGS: Changes of median sternotomy are noted. The heart size is normal. The lungs are clear. No infiltrates are seen. There is no effusion or pneumothorax. IMPRESSION: No acute cardiopulmonary process is detected. Dictated by: Dictated on workstation # [id number]
[2019-10-05 16:44] VITALS: BP 132/64
== END 2019-10-05 16:44 | disposition home or self-care (01) ==
LOC: EDUNIT# 15:11 → ER 15:13
DX: S16.1XXA Strain of muscle, fascia and tendon at neck level, initial encounter (principal); I25.10 Atherosclerotic heart disease of native coronary artery without angina pectoris; Z87.891 Personal history of nicotine dependence; Z95.1 Presence of aortocoronary bypass graft; Z79.82 Long term (current) use of aspirin
CPT/HCPCS: 36415; 70450; 71045; 80053; 82962; 84484; 85025; 85379; 85610; 85730; 93005; 93041; 96374

== ENCOUNTER → 2020-03-09 | Outpatient (CLI) | payer MEDICARE ==
[~2020-03-09] MED LIST changes: +ASPI-1238 PO; -ASPI-983 PO
[2020-03-09 09:18] LABS: BILIRUBIN,URINE NEGATIVE (NEGATIVE); CLARITY,URINE CLEAR; COLOR,URINE YELLOW; GLUCOSE, URINE (UA) NEGATIVE (NEGATIVE); KETONES,URINE NEGATIVE (NEGATIVE); LEUKOCYTE ESTERASE ,URINE NEGATIVE (NEGATIVE); NITRITE,URINE NEGATIVE (NEGATIVE); PH,URINE 6.5 (5-9); PROTEIN,URINE TRACE (NEGATIVE)
[2020-03-09 09:42] LABS: BACTERIA,URINE NEGATIVE /HPF; RBC,URINE RARE /HPF; SQUAMOUS EPITHELIAL CELL,UR 0-2 /HPF
== END ==
LOC: LAB 08:53
PROVIDERS: ATTEND Internal Medicine Nephrology
DX: M32.14 Glomerular disease in systemic lupus erythematosus (principal); I12.9 Hypertensive chronic kidney disease with stage 1 through stage 4 chronic kidney disease, or unspecified chronic kidney disease; N18.30 Chronic kidney disease, stage 3 unspecified; E79.0 Hyperuricemia without signs of inflammatory arthritis and tophaceous disease
CPT/HCPCS: 36415; 81000; 82570; 83970; 84156; 84550

== ENCOUNTER → 2020-03-14 | Outpatient (CLI) | payer MEDICARE ==
--- NOTE | 2020-03-14 09:51 | Diagnostic Imaging Report ---
PROCEDURE: US Renal Bilateral. TECHNIQUE: Multiple real-time grayscale images were obtained over the kidneys in various projections bilaterally. INDICATION: Lupus nephritis. The previous renal ultrasound exam performed on 01/13/2018 noted bilateral renal cysts but failed to show any sign of an acute abnormality. On this study there are again cysts involving both kidneys. This includes a 3.4 x 3.8 cm cyst along the superior aspect of the right kidney as well as a 2.8 x 2.7 cm cyst along the inferior aspect of the right kidney. There are also 3 cysts associated with the left kidney. The largest of these is in the inferior pole measures 3.5 x 3.7 cm. A 1.8 x 1.7 cm cyst is also seen along the superior pole of the left kidney. There is no solid renal mass identified and there is no sign of hydronephrosis. The renal cortices are normal in thickness and echogenicity. The bladder was imaged during the course of the exam. The bladder is only partially filled and consequently not well evaluated. There is no obvious bladder abnormality evident. Both ureteral jets were noted. IMPRESSION: 1. There is no evidence for a solid renal mass or for an acute abnormality of the kidney. 2. The cysts associated with the kidney seen previously are again evident and do not appear to have changed significantly. 3. There is no obvious bladder abnormality evident. Dictated by: Dictated on workstation # [id number]
== END ==
LOC: RAD 08:35
PROVIDERS: ATTEND Internal Medicine Nephrology
DX: M32.14 Glomerular disease in systemic lupus erythematosus (principal); I12.9 Hypertensive chronic kidney disease with stage 1 through stage 4 chronic kidney disease, or unspecified chronic kidney disease; N18.30 Chronic kidney disease, stage 3 unspecified; N28.1 Cyst of kidney, acquired; E79.0 Hyperuricemia without signs of inflammatory arthritis and tophaceous disease
CPT/HCPCS: 76770

== ENCOUNTER → 2020-03-22 | Outpatient (CLI) | payer MEDICARE ==
[2020-03-22 14:59] LABS: ALBUMIN 4.3 GM/DL (3.2-4.5); CALCIUM 9.2 MG/DL (8.5-10.1); CREATININE SERUM 1.85 MG/DL (0.60-1.30); PHOSPHORUS 2.7 MG/DL (2.3-4.7); POTASSIUM 3.6 MMOL/L (3.6-5.0)
== END ==
LOC: LABNPT 14:32
PROVIDERS: ATTEND Internal Medicine Nephrology
DX: I12.9 Hypertensive chronic kidney disease with stage 1 through stage 4 chronic kidney disease, or unspecified chronic kidney disease (principal); M32.14 Glomerular disease in systemic lupus erythematosus; N18.30 Chronic kidney disease, stage 3 unspecified; E79.0 Hyperuricemia without signs of inflammatory arthritis and tophaceous disease
CPT/HCPCS: 80069

== ENCOUNTER → 2020-05-03 | Outpatient (CLI) | payer MEDICARE ==
[~2020-05-03] MED LIST changes: -ISOS30TA3 PO; +ISOS30TA82 PO
--- NOTE | 2020-05-03 08:34 | Diagnostic Imaging Report ---
PROCEDURE: US Aorta Doppler. TECHNIQUE: Multiple real time grayscale images were obtained over the abdominal aorta in various projections. INDICATION: Abdominal aortic aneurysm screening. COMPARISON: None. FINDINGS: The proximal aorta measures 1.3 x 2.2 cm. The distal aorta measures 1.7 x 1.4 cm. The right iliac artery measures 1.2 x 0.7 cm. The left iliac artery measures 1.2 x 0.8 cm. IMPRESSION: No evidence of abdominal aortic aneurysm. Dictated by: Dictated on workstation # [id number]
== END ==
LOC: RAD 07:00
PROVIDERS: ATTEND Nurse Practitioner Family
DX: Z13.6 Encounter for screening for cardiovascular disorders (principal)
CPT/HCPCS: 93978

== ENCOUNTER 2021-01-06 05:30 | Outpatient (RCR) | payer MEDICARE ==
[~2021-01-06] VITALS: Ht 172.7 cm; Wt 202.1 kg
[~2021-01-06 05:30] MED LIST changes: +VITA1CAP PO
== END 2021-01-06 13:11 | disposition home or self-care (01) ==
LOC: PREOP 05:30
PROVIDERS: ATTEND Surgery
DX: Z01.812 Encounter for preprocedural laboratory examination (principal); Z12.11 Encounter for screening for malignant neoplasm of colon; R10.13 Epigastric pain; Z20.822 Contact with and (suspected) exposure to COVID-19
CPT/HCPCS: 87635

== ENCOUNTER 2021-01-10 09:30 | Day surgery (SDC) | payer MEDICARE ==
[~2021-01-10] VITALS: Ht 172.7 cm; Wt 91.7 kg
[2021-01-10] MEDS ORDERED: LACTATED RINGERS 1,000 ML IV ONE (09:33)
[2021-01-10] MEDS ORDERED: LACTATED RINGERS 1,000 ML IV STA (09:38)
[2021-01-10] MEDS ORDERED: HURRICAINE EXT TUBE (BENZOCAINE) XX PRN (09:45)
[2021-01-10 10:06] VITALS: BP 163/96
--- NOTE | 2021-01-10 10:32 | Progress Note-Pre Operative ---
Pre-Operative Progress Note H&P Reviewed The H&P was reviewed, patient examined and no changes noted. Date Seen by Provider: Jan 10, 2021 Time Seen by Provider: 10:32 Date H&P Reviewed: Jan 10, 2021 Time H&P Reviewed: 10:32 Pre-Operative Diagnosis: gerd, epigastric abd pain, screening colonoscopy SABA GUTIERREZ DO Jan 10, 2021 10:32
[2021-01-10] MEDS ORDERED: proPOfol 200 MG/20 ML (DIPRIVAN) VIAL IV ONE ×2 (10:38→11:00)
[2021-01-10 11:20] VITALS: BP 182/90
[2021-01-10 11:25] VITALS: BP 181/89
--- NOTE | 2021-01-10 11:25 | Progress Note-Post Operative ---
Post-Operative Progess Note Surgeon (s)/Tipple Engineer (s) Surgeon SABA GUTIERREZ DO Tipple Engineer: N/A Pre-Operative Diagnosis gerd, epigastric abd pain, screening colonoscopy Post-Operative Diagnosis normal egd, incomplete colonoscopy Procedure & Operative Findings Date of Procedure 01/10/21 Procedure Performed/Findings EGD with biopsies at the antrum and GE junction; colonoscopy- incomplete Anesthesia Type Per BOX STACKER Estimated Blood Loss Estimated blood loss (mL): None Specimens/Packing Specimens Removed Biopsies at the antrum and GE junction SABA GUTIERREZ DO Jan 10, 2021 11:25
--- NOTE | 2021-01-10 11:29 | Discharge Inst-Simple/Standard ---
Discharge Inst-Standard Patient Instructions/Follow Up Plan of Care/Instructions/FU: Repeat prep instructions today, and nothing to eat or drink after midnight for colonoscopy tomorrow. Activity as Tolerated: Yes Discharge Diet: Liquid Diet (clear liquids for prep today and follow prep instructions.) SABA GUTIERREZ DO Jan 10, 2021 11:29
[2021-01-10 11:30] VITALS: BP 181/89
[2021-01-10 12:15] VITALS: BP 181/89
--- NOTE | 2021-01-10 22:55 | OPERATIVE REPORT ---
DATE OF SERVICE: 01/10/2021 PREOPERATIVE DIAGNOSES: Gastroesophageal reflux disease, epigastric abdominal pain, screening colonoscopy. POSTOPERATIVE DIAGNOSIS: Normal EGD and complete colonoscopy. PROCEDURE: EGD with biopsies of the antrum and GE junction, colonoscopy incomplete. SURGEON: Saba Fairchild DO ANESTHESIA: Per NURSE TECHNICIAN. ESTIMATED BLOOD LOSS: None. COMPLICATIONS: None. INDICATIONS: The patient is a 75-year-old male with GERD, epigastric abdominal pain. He also needs screening colonoscopy. He understands risks and benefits of procedure and wished to proceed. Consent was signed in the chart. DESCRIPTION OF PROCEDURE: The patient was taken to the endoscopy suite, placed in left lateral recumbent position. Timeout was performed. Scope was inserted in mouth, down the esophagus, stomach and into the duodenum without difficulty. There were no polyps, masses or ulcerations within the duodenum. Scope was slowly retracted back into the stomach where it was further insufflated. Biopsy of the antrum was obtained. No polyps, masses or ulcerations. Scope was retroflexed noting no other pathology. Scope was returned to its normal position, slowly withdrawn to distal esophagus. There are no polyps, masses or ulcerations. Biopsy of the GE junction was obtained. Scope was then slowly retracted back until completely removed, noting no other pathology. Digital rectal exam was performed. There were no palpable polyps, masses or ulcerations. Scope was inserted in the rectum and started to be advanced towards the cecum. Some particular throughout the left side of the colon. Once gotten to the right colon, a significant stool burden present. Lots of irrigation and suction was used, but still cannot get adequate visualization; therefore scope was then slowly retracted until completely removed. No other pathology noted during retraction. Scope was then slowly retracted back until completely removed. The patient tolerated procedure well without any complications. He was taken to recovery room in stable condition. RECOMMENDATIONS: The patient will need repeat colonoscopy. Would prefer repeat colon prep today. Due colonoscopy tomorrow. Otherwise, we would recommend doing a 2-day prep and planning colonoscopy. CC: Steph Denson- requested, unable to deliver. Job ID: [id number] DocumentID: [id number] Dictated Date: 01/10/2021 11:32:39 Supervisor Inspecting Date: 01/10/2021 21:55:56 Dictated By: SABA FAIRCHILD DO
== END 2021-01-10 12:15 | disposition home or self-care (01) ==
LOC: ENDO 09:30
PROVIDERS: ATTEND Surgery
DX: Z12.11 Encounter for screening for malignant neoplasm of colon (principal); K31.89 Other diseases of stomach and duodenum; K21.9 Gastro-esophageal reflux disease without esophagitis; R10.13 Epigastric pain; I10 Essential (primary) hypertension; I25.10 Atherosclerotic heart disease of native coronary artery without angina pectoris; E66.01 Morbid (severe) obesity due to excess calories; F17.210 Nicotine dependence, cigarettes, uncomplicated; Z68.30 Body mass index [BMI] 30.0-30.9, adult; Z79.899 Other long term (current) drug therapy; Z79.82 Long term (current) use of aspirin
CPT/HCPCS: 43239; G0121; 88305

== ENCOUNTER 2021-01-11 07:20 | Day surgery (SDC) | payer MEDICARE ==
[~2021-01-11] VITALS: Ht 173 cm; Wt 91.7 kg
[2021-01-11] MEDS ORDERED: LACTATED RINGERS 1,000 ML IV STA (07:23)
[2021-01-11] MEDS ORDERED: LACTATED RINGERS 1,000 ML IV ONE (07:25)
[2021-01-11] MEDS ORDERED: PROPOFOL INJECTION 50 ML IV ONE (07:31)
--- NOTE | 2021-01-11 07:34 | Progress Note-Pre Operative ---
Pre-Operative Progress Note H&P Reviewed The H&P was reviewed, patient examined and no changes noted. Date Seen by Provider: Jan 11, 2021 Time Seen by Provider: 07:31 Date H&P Reviewed: Jan 11, 2021 Time H&P Reviewed: 07:31 Pre-Operative Diagnosis: screening colonoscopy SABA GUTIERREZ DO Jan 11, 2021 07:34
[2021-01-11 07:47] VITALS: BP 165/72
[2021-01-11 08:00] VITALS: BP 128/69
[2021-01-11 08:05] VITALS: BP 126/66
--- NOTE | 2021-01-11 08:06 | Anesthesia-General Post-Op ---
MAC Patient Condition Mental Status/LOC: Same as Preop Cardiovascular: Satisfactory Nausea/Vomiting: Absent Respiratory: Satisfactory Pain: Controlled Complications: Absent Post Op Complications Complications None Follow Up Care/Instructions Patient Instructions None needed. Anesthesiology Discharge Order Discharge Order Patient is doing well, no complaints, stable vital signs, no apparent adverse anesthesia problems. No complications reported per nursing. CHANDRAKANT LOPEZ CRNA Jan 11, 2021 08:06
[2021-01-11 08:30] VITALS: BP 125/73
[2021-01-11 08:48] VITALS: BP 117/74
--- NOTE | 2021-01-12 01:45 | OPERATIVE REPORT ---
DATE OF SERVICE: 01/11/2021 PREOPERATIVE DIAGNOSIS: Screening colonoscopy. POSTOPERATIVE DIAGNOSIS: Normal colon. PROCEDURE: Colonoscopy. SURGEON: Saba Fairchild DO ANESTHESIA: Per MACHINE SHOP REPAIR TECHNICIAN. ESTIMATED BLOOD LOSS: None. COMPLICATIONS: None. INDICATIONS: The patient is a 75-year-old male for screening colonoscopy. He had an incomplete colonoscopy yesterday. He completed another prep and understands risks and benefits and wishes to proceed. Consent was signed in the chart. DESCRIPTION OF PROCEDURE: The patient was taken to the endoscopy suite, placed in left lateral recumbent position. Timeout was performed. Digital rectal exam was performed. There were no palpable polyps, masses or ulcerations. Scope was inserted in the rectum, advanced all the way to cecum with minimal difficulty. Prep was adequate. Scope was then slowly retracted back. No polyps, masses or ulcerations within the cecum, ascending, transverse, descending, sigmoid colon. Once in the rectum, scope was retroflexed noting no other pathology. Scope was returned to its normal position, slowly withdrawn until completely removed. The patient tolerated procedure well without any complications, taken to recovery room in stable condition. RECOMMENDATIONS: The patient will need repeat colonoscopy only on an as needed basis. If he has any symptoms or changes in bowel habits, he should be seen at that time. Otherwise, he does not need any further colonoscopies. CC: Steph Denson -- requested, unable to deliver. Job ID: [id number] DocumentID: [id number] Dictated Date: 01/11/2021 15:14:37 Human Resources Trainee Date: 01/12/2021 01:45:21 Dictated By: SABA FAIRCHILD DO
== END 2021-01-11 08:51 | disposition home or self-care (01) ==
LOC: ENDO 07:20
PROVIDERS: ATTEND Surgery
DX: Z12.11 Encounter for screening for malignant neoplasm of colon (principal); I10 Essential (primary) hypertension; E78.5 Hyperlipidemia, unspecified; I25.10 Atherosclerotic heart disease of native coronary artery without angina pectoris; K50.90 Crohn's disease, unspecified, without complications; M32.14 Glomerular disease in systemic lupus erythematosus; K21.9 Gastro-esophageal reflux disease without esophagitis; Z87.891 Personal history of nicotine dependence; Z79.82 Long term (current) use of aspirin; Z79.899 Other long term (current) drug therapy; Z95.1 Presence of aortocoronary bypass graft

== ENCOUNTER 2021-02-16 17:19 | Emergency (ER) | payer MEDICARE ==
[~2021-02-16] VITALS: Ht 172.2 cm; Wt 95.2 kg
--- NOTE | 2021-02-16 17:43 | ED Chest Pain ---
General Chief Complaint: Chest Pain Stated Complaint: COUGH/CHEST PAIN/HEADACHE/CONGESTION Source: patient, family Exam Limitations: no limitations History of Present Illness Date Seen by Provider: Feb 16, 2021 Time Seen by Provider: 17:39 Initial Comments To ER by private vehicle from [facility] where he presented with a 5-day history of headache, cough, body aches, chills. He had a negative Covid swab there and reported midline chest pain. He has coronary artery disease and has had a CABG. Pain is at the sternotomy site and the pain is worsened by coughing or touching the sternotomy site. Pain in the chest is intermittent for 3 days and the chest pain was the reason for referral to ER. Timing/Duration: 2-3 days Severity/Quality: moderate Location: central [facility] po SOFTWARE DEVELOPMENT ENGINEER: No NTG SL SOFTWARE DEVELOPMENT ENGINEER: No Allergies and Home Medications Allergies Coded Allergies: No Known Drug Allergies (Unverified , 10/13/12) Patient Home Medication List Home Medication List Reviewed: Yes Allopurinol (Allopurinol) 100 Mg Tablet, 100 MG PO 1200, (Reported) Entered as Reported by: ZACK GARCIA on 04/08/19851 Aspirin (Aspirin EC) 81 Mg Tablet.dr, 81 MG PO 1200, (Reported) Entered as Reported by: ZACK GARCIA on 04/08/19851 Cholecalciferol (Vitamin D3) (D3-2000) 50 Mcg Capsule, 1,200 MCG PO, (Reported) Entered as Reported by: ZACK GARCIA on 04/08/19848 Ferrous Sulfate (Iron) 325 Mg Tablet, 325 MG PO 1200, (Reported) Entered as Reported by: ZACK GARCIA on 04/08/19851 Hydrochlorothiazide (Hydrochlorothiazide) 25 Mg Tablet, 25 MG PO BID, (Reported) Entered as Reported by: ZACK GARCIA on 04/08/19848 Hydroxychloroquine Sulfate (Hydroxychloroquine Sulfate) 200 Mg Tablet, 200 MG PO 1200, (Reported) Entered as Reported by: ZACK GARCIA on 04/08/19848 Isosorbide Mononitrate (Isosorbide Mononitrate ER) 30 Mg Tab.er.24h, 30 MG PO DAILY, (Reported) Entered as Reported by: ZACK GARCIA on 04/08/19851 Levothyroxine Sodium (Levothyroxine Sodium) 137 Mcg Tablet, 137 MCG PO DAILY, (Reported) Entered as Reported by: ZACK GARCIA on 04/08/19 0849 Lisinopril (Prinivil) 20 Mg Tablet, 20 MG PO DAILY, (Reported) Entered as Reported by: AKOSUA DIAS on 08/21/13 1057 Multivit-Min/FA/Lycopen/Lutein (Centrum Silver Men Tablet) 1 Each Tablet, 1 EACH PO DAILY, (Reported) Entered as Reported by: ZACK GARCIA on 04/08/19 0849 Villas-3 Fatty Acids/Fish Oil (Fish Oil 1,200 mg Softgel) 1 Each Capsule, 1,200 MG PO DAILY, (Reported) Entered as Reported by: JONN ALEJANDRA on 11/16/15 1147 Omeprazole (Omeprazole) 20 Mg Capsule.dr, 20 MG PO BID, (Reported) Entered as Reported by: ZACK GARCIA on 04/08/19 0849 Simvastatin (Simvastatin) 40 Mg Tablet, 40 MG PO 1800, (Reported) Entered as Reported by: ZACK GARCIA on 04/08/19 0841 Vitamin B Complex (Vitamin B Complex) 1 Each Capsule, 1 EACH PO DAILY, (Reported) Entered as Reported by: HUDSON PRESTON on 01/02/21 1505 Review of Systems Review of Systems Constitutional: see HPI EENTM: No Symptoms Reported, Nose Congestion Respiratory: See HPI, Cough Cardiovascular: See HPI, Chest Pain Gastrointestinal: No Symptoms Reported Genitourinary: No Symptoms Reported Musculoskeletal: see HPI, muscle pain Skin: no symptoms reported Psychiatric/Neurological: No Symptoms Reported Endocrine: No Symptoms Reported Hematologic/Lymphatic: No Symptoms Reported Past Osvcrwd-Bqcjhs-Eiwnqw Hx Immunizations Up To Date Tetanus Booster (TDap): Unknown First/Initial COVID19 Vaccinat: 06/22 Second COVID19 Vaccination Medardo: 07/22 Seasonal Allergies Seasonal Allergies: No Past Medical History Surgeries: Yes CABG Respiratory: No Cardiac: Yes Coronary Artery Disease, Hypertension Neurological: No Genitourinary: Yes (CKD GFR 30-59) Renal Failure Gastrointestinal: No Musculoskeletal: Yes Arthritis Endocrine: Yes Lupus Loss of Vision: Denies Hearing Impairment: Denies Cancer: No Psychosocial: No Integumentary: No Blood Disorders: No Adverse Reaction/Blood Tranf: No Physical Exam Vital Signs Vital Signs - First Documented 02/16/21 17:32 Temp 36.7 Pulse 70 Resp 18 B/P (MAP) 188/92 (124) Pulse Ox 98 Capillary Refill : Height, Weight, BMI Height: 5'7.00" Weight: 202lbs. 0.0oz. 91.654612sv; 30.63 BMI Method:Stated General Appearance: No Apparent Distress, WD/WN Respiratory: No Accessory Muscle Use, No Respiratory Distress Cardiovascular: Regular Rate, Rhythm, Normal Peripheral Pulses, Other (Sternotomy site is clean dry intact without cellulitis or abnormal appearance. It is tender to palpation and does reproduce his pain. He did receive 324 mg of aspirin at [facility].) Gastrointestinal: Non Tender, Soft Extremity: Normal Capillary Refill, Normal Inspection Neurologic/Psychiatric: Alert, Oriented x3 Skin: Normal Color, Warm/Dry Progress/Results/Core Measures Results/Orders Lab Results Laboratory Tests Test 02/16/21 17:35 02/16/21 19:35 Range/Units White Blood Count 8.3 4.3-11.0 10^3/uL Red Blood Count 4.31 4.30-5.52 10^6/uL Hemoglobin 13.7 13.3-17.7 g/dL Hematocrit 42 40-54 % Mean Corpuscular Volume 97 80-99 fL Mean Corpuscular Hemoglobin 32 25-34 pg Mean Corpuscular Hemoglobin Concent 33 32-36 g/dL Red Cell Distribution Width 13.3 10.0-14.5 % Platelet Count 160 130-400 10^3/uL Mean Platelet Volume 9.9 9.0-12.2 fL Immature Granulocyte % (Auto) 0 % Neutrophils (%) (Auto) 58 42-75 % Lymphocytes (%) (Auto) 23 12-44 % Monocytes (%) (Auto) 15 H 0-12 % Eosinophils (%) (Auto) 2 0-10 % Basophils (%) (Auto) 1 0-10 % Neutrophils # (Auto) 4.8 1.8-7.8 10^3/uL Lymphocytes # (Auto) 1.9 1.0-4.0 10^3/uL Monocytes # (Auto) 1.2 H 0.0-1.0 10^3/uL Eosinophils # (Auto) 0.2 0.0-0.3 10^3/uL Basophils # (Auto) 0.1 0.0-0.1 10^3/uL Immature Granulocyte # (Auto) 0.0 0.0-0.1 10^3/uL Prothrombin Time 13.4 12.2-14.7 SEC INR Comment 1.0 0.8-1.4 Activated Partial Thromboplast Time 30 24-35 SEC Sodium Level 139 135-145 MMOL/L Potassium Level 4.0 3.6-5.0 MMOL/L Chloride Level 105 98-107 MMOL/L Carbon Dioxide Level 23 21-32 MMOL/L Anion Gap 11 5-14 MMOL/L Blood Urea Nitrogen 27 H 7-18 MG/DL Creatinine 1.80 H 0.60-1.30 MG/DL Estimat Glomerular Filtration Rate 37 BUN/Creatinine Ratio 15 Glucose Level 87 70-105 MG/DL Calcium Level 9.1 8.5-10.1 MG/DL Corrected Calcium 8.9 8.5-10.1 MG/DL Magnesium Level 1.9 1.6-2.4 MG/DL Total Bilirubin 0.4 0.1-1.0 MG/DL Aspartate Amino Transf (AST/SGOT) 29 5-34 U/L Alanine Aminotransferase (ALT/SGPT) 24 0-55 U/L Alkaline Phosphatase 83 40-136 U/L Myoglobin 167.0 H 10.0-92.0 NG/ML Troponin I < 0.028 < 0.028 <0.028 NG/ML B-Type Natriuretic Peptide 29.3 <100.0 PG/ML Total Protein 8.3 H 6.4-8.2 GM/DL Albumin 4.3 3.2-4.5 GM/DL My Orders Orders - SORAIDA HUTTON WET WHEELER Cbc With Automated Diff (02/16/21 17:24) Magnesium (02/16/21 17:24) Chest 1 View, Ap/Pa Only (02/16/21 17:24) Ekg Tracing (02/16/21 17:24) Comprehensive Metabolic Panel (02/16/21 17:24) Myoglobin Serum (02/16/21 17:24) Protime With Inr (02/16/21 17:24) Partial Thromboplastin Time (02/16/21 17:24) O2 (02/16/21 17:24) Monitor-Rhythm Ecg Trace Only (02/16/21 17:24) Lipid Panel (02/17/21 06:00) Ed Iv/Invasive Line Start (02/16/21 17:24) Bnp Henry (02/16/21 17:24) Troponin I Victoria (02/16/21 17:24) Fentanyl Inj (Sublimaze Injection) (02/16/21 17:45) Ketorolac Injection (Toradol Injection) (02/16/21 17:45) Nitroglycerin 0.4 Mg Btl 25's (Nitrostat (02/16/21 17:45) Nitroglycerin 0.4 Mg Btl 25's (Nitrostat (02/16/21 17:45) Troponin I Henry (02/16/21 19:34) Medications Given in ED Current Medications Medications Dose Ordered Sig/Femi Route Start Time Stop Time Status Last Admin Dose Admin Nitroglycerin 1 TAB Q 5 MIN X 3 NEEDED PRN SL 02/16/21 17:45 02/16/21 17:47 0.4 MG Vital Signs/I&O 02/16/21 17:32 Temp 36.7 Pulse 70 Resp 18 B/P (MAP) 188/92 (124) Pulse Ox 98 Progress Progress Note : Progress Note EKG at 1732 shows sinus rhythm without ST segment elevation or depression. Normal intervals no ectopy. Departure Communication (Admissions) 1812-his chest pain is now gone completely after 1 sublingual nitroglycerin. It was 7 out of 10 prior to administration of that. 2029-remains pain free. two negative troponins, will dc to home., Impression Primary Impression: Chest pain Additional Impression: Viral syndrome Disposition: HOME, SELF-CARE Condition: Stable Departure-Patient Inst. Decision time for Depature: 20:29 Referrals: [facility] (PCP) Primary Care Physician KACEY JACOB APRN (Family) Primary Care Physician Patient Instructions: Chest Pain (DC) SORAIDA HUTTON APRN Feb 16, 2021 17:42
[2021-02-16] MEDS ORDERED: fentaNYL INJ 100 MCG/2 ML AMP IVP ONE (17:45)
[2021-02-16] MEDS ORDERED: KETOROLAC 30 MG/ML VIAL IVP ONE (17:45)
[2021-02-16] MEDS ORDERED: NITROGLYCERIN 0.4 MG SL TABS BTL 25'S SL PRN (17:45)
[2021-02-16] MEDS ORDERED: NITROGLYCERIN 0.4 MG SL TABS BTL 25'S SL ONE (17:45)
[2021-02-16 17:50] LABS: BASOPHILS # (AUTO) 0.1 10^3/uL (0.0-0.1); BASOPHILS % (AUTO) 1 % (0-10); EOSINOPHILS # (AUTO) 0.2 10^3/uL (0.0-0.3); EOSINOPHILS % (AUTO) 2 % (0-10); HEMATOCRIT 42 % (40-54); HEMOGLOBIN 13.7 g/dL (13.3-17.7); LYMPHOCYTES # (AUTO) 1.9 10^3/uL (1.0-4.0); LYMPHOCYTES % (AUTO) 23 % (12-44); MEAN CORPUSCULAR HEMOGLOBIN 32 pg (25-34); MEAN CORPUSCULAR HGB CONC 33 g/dL (32-36); MEAN CORPUSCULAR VOLUME 97 fL (80-99); MEAN PLATELET VOLUME 9.9 fL (9.0-12.2); MONOCYTES # (AUTO) 1.2 10^3/uL (0.0-1.0); MONOCYTES % (AUTO) 15 % (0-12); NEUTROPHILS # (AUTO) 4.8 10^3/uL (1.8-7.8); NEUTROPHILS % (AUTO) 58 % (42-75); PLATELET COUNT 160 10^3/uL (130-400); WHITE BLOOD COUNT 8.3 10^3/uL (4.3-11.0)
[2021-02-16 18:01] LABS: PROTHROMBIN TIME PATIENT 13.4 SEC (12.2-14.7)
[2021-02-16 18:05] LABS: ALBUMIN 4.3 GM/DL (3.2-4.5)
[2021-02-16 18:06] LABS: CALCIUM 9.1 MG/DL (8.5-10.1)
[2021-02-16 18:08] LABS: TOTAL PROTEIN 8.3 GM/DL (6.4-8.2)
[2021-02-16 18:09] LABS: BILIRUBIN,TOTAL 0.4 MG/DL (0.1-1.0)
[2021-02-16 18:11] LABS: CREATININE SERUM 1.8 MG/DL (0.60-1.30)
[2021-02-16 18:14] LABS: MAGNESIUM 1.9 MG/DL (1.6-2.4)
--- NOTE | 2021-02-16 18:17 | Diagnostic Imaging Report ---
EXAMINATION: Chest 1 view HISTORY: Chest pain. Cough. COMPARISON: 10/05/2019. FINDINGS: The lung volumes are normal. No focal consolidation is seen. No large pleural effusion or pneumothorax is seen. The cardiomediastinal silhouette is normal in size and contour. Post CABG changes are noted. There is calcified aortic atherosclerotic plaque. No acute osseous abnormality is seen. IMPRESSION: 1. No acute pleuroparenchymal process. Dictated by: Dictated on workstation # [id number]
[2021-02-16 20:29] VITALS: BP 177/80
== END 2021-02-16 20:41 | disposition home or self-care (01) ==
LOC: EDUNIT# 17:19 → ER 17:24
DX: R07.9 Chest pain, unspecified (principal); B34.9 Viral infection, unspecified; I10 Essential (primary) hypertension; I25.10 Atherosclerotic heart disease of native coronary artery without angina pectoris; Z95.1 Presence of aortocoronary bypass graft; Z79.899 Other long term (current) drug therapy; Z79.82 Long term (current) use of aspirin
CPT/HCPCS: 36415; 71045; 80053; 83735; 83874; 83880; 84484; 85025; 85610; 85730; 93005; 93041

== ENCOUNTER → 2021-09-01 | Outpatient (CLI) | payer MEDICARE, OTHER | LOC: CARD 15:00 | PROVIDERS: ATTEND Physician Assistant | DX: I11.9 Hypertensive heart disease without heart failure (principal); I37.2 Nonrheumatic pulmonary valve stenosis with insufficiency; I25.10 Atherosclerotic heart disease of native coronary artery without angina pectoris | CPT/HCPCS: 93306 ==